=== PATIENT | female | born 1955 | race Caucasian/White ===

== ENCOUNTER → 2018-06-08 | Outpatient (CLI) | payer OTHER ==
--- NOTE | 2018-06-08 14:59 | PCVCIMAG ---
APPROVED REPORT Study performed: 06/08/2018 13:21:13 EXAM: Comprehensive 2D, Doppler, and color-flow Echocardiogram Patient Location: Echo lab Status: routine BSA: 1.80 HR: 72 bpmBP: 124/72 mmHg Rhythm: NSR Other Information Study Quality: Adequate Risk Factors: Cardiac Risk Factors: Hyperlipidemia Indications Dyspnea Elevated CA Score Asthma 2D Dimensions IVSd: 7.15 (7-11mm)LVOT Diam: 17.00 (18-24mm) LVDd: 36.48 mm PWd: 9.78 (7-11mm)Ascending Ao: 26.36 (22-36mm) LVDs: 26.51 (25-40mm) Left Atrium: 29.34 (27-40mm) Aortic Root: 28.55 mm LV Single Plane 4CH: 54.82 % LV Single Plane 2CH: 50.93 % Biplane EF: 53.1 % Volumes Left Atrial Volume (Systole) Single Plane 4CH: 20.98 mLSingle Plane 2CH: 25.05 mL LA ESV Index: 13.00 mL/m2 Aortic Valve AoV Peak Lawson.: 1.53 m/s AO Peak Gr.: 9.33 mmHgLVOT Max P.50 mmHg LVOT Max V: 0.93 m/s LEA Vmax: 1.33 cm2 AI Vmax: 3.84 m/s AI Braxton: 1.81 m/s2 AI PHT: 616.55 ms Mitral Valve E/A Ratio: 0.8 MV Decel. Time: 295.21 ms MV E Max Lawson.: 0.73 m/s MV A Lawson.: 0.94 m/s IVRT: 76.12 ms TDI E/Lateral E': 9.13E/Medial E': 9.13 Medial E' Lawson.: 0.08 m/s Lateral E' Lawson.: 0.08 m/s Pulmonary Valve PV Peak Lawson.: 0.84 m/sPV Peak Gr.: 2.87 mmHg Pulmonary Vein P Vein S: 0.54 m/sP Vein A: 0.29 m/s P Vein D: 0.32 m/sP Vein A Dur.: 83.0 msec P Vein S/D Ratio: 1.69 Tricuspid Valve RAP Estimate: 7.00 mmHg Left Ventricle The left ventricle is normal size. There is normal LV segmental wall motion. There is normal left ventricular wall thickness. Left ventricular systolic function is normal. The left ventricular ejection fraction is within the normal range. LVEF is 50-55%. Grade I - abnormal relaxation pattern. Right Ventricle The right ventricle is normal size. The right ventricular systolic function is normal. Atria The left atrium size is normal. The right atrium size is normal. Aortic Valve The aortic valve is normal in structure. Mild aortic regurgitation. There is no aortic valvular stenosis. Mitral Valve The mitral valve is normal in structure. There is no mitral valve regurgitation noted. No evidence of mitral valve stenosis. Tricuspid Valve The tricuspid valve is normal in structure. Trace tricuspid regurgitation. Unable to assess PA pressure. Pulmonic Valve The pulmonary valve is normal in structure. There is no pulmonic valvular regurgitation. Great Vessels The aortic root is normal in size. IVC is normal in size and collapses >50% with inspiration. Pericardium There is no pericardial effusion. <Conclusion> The left ventricle is normal size. There is normal left ventricular wall thickness. Left ventricular systolic function is normal. Grade I - abnormal relaxation pattern. The right ventricle is normal size. The left atrium size is normal. Mild aortic regurgitation. There is no mitral valve regurgitation noted. Trace tricuspid regurgitation.
--- NOTE | 2018-06-08 15:02 | PCVCIMAG ---
APPROVED REPORT Study performed: 06/08/2018 14:02:30 Exam: Stress Echocardiogram Indication: Hyperlipidemia, Dyspnea, Elevated CA Score Patient Location: Echo lab Stress Nurse: Carolyne Castellano RN Status: routine Ht: 5 ft 3 in HR: 72 bpm BP: 124/72 mmHg Rhythm: NSR Procedure The patient underwent an Exercise Stress Test using the Maverick Protocol. Blood pressure, heart rate, and EKG were monitored. An Echocardiogram was performed by air conditioning service technician in four stages in quad fashion. At peak stress, four selected images were obtained and placed side by side with resting images for comparison. Stress Test Details Stress Test: Exercise stress testing was performed using a Maverick protocol. HR Resting HR: 71 bpmMax Heart Rate (APMHR): 156 bpm Max HR Achieved: 169 bpmTarget HR (85% APMHR): 132 bpm % of APMHR: 108 Recovery HR: 104 bpm HR response to stress: Normal HR response to stress BP Resting BP: 124/72 mmHg Max BP: 158/80 mmHg Recovery BP: 136/80 mmHg ECG Resting ECG: Sinus Rhythm Stress ECG: Sinus Rhythm ST Change: Non-ischemic Recovery ECG: Sinus Rhythm Clinical Reason for Termination: Maximal effort Exercise duration: 6 min 22 sec Highest Stage Achieved: Stage 3: 3.4 mph at 14% grade. Exercise capacity: 8.00 METs Overall Exercise Capacity for Age: Average Stress ECG Conclusion ECG: Non-ischemic Clinical: Non-ischemic Pre-Stress Echo The resting Echocardiogram showed normal left ventricular contractility with an estimated Ejection Fraction of about 50-55%. Normal wall motion in all segments on baseline images. Post-Stress Echo The stress Echocardiogram showed normal left ventricular contractility with an estimated Ejection Fraction of about 60-65%. Normal augmentation of wall motion in all segments on post stress images. Clinical No clinical or ECG evidence for ischemia. Conclusion Clinical Response: Non-ischemic Exercise Capacity: Average Stress ECG Response: Non-ischemic Stress Echo Images: Non-ischemic The left ventricle is normal in size and wall thickness in both the rest and stress images. Other Information Study Quality: Adequate <Conclusion> The left ventricle is normal in size and wall thickness in both the rest and stress images.
== END | disposition home or self-care (01) ==
LOC: PCVCIMAG 15:25
PROVIDERS: ATTEND Internal Medicine Cardiovascular Disease
DX: I35.1 Nonrheumatic aortic (valve) insufficiency (principal); E78.5 Hyperlipidemia, unspecified; J45.909 Unspecified asthma, uncomplicated
CPT/HCPCS: 93306; 93351